=== PATIENT | female | born 1985 | race Two or more races ===

== ENCOUNTER 2017-02-15 18:59 | Emergency (ER) | payer OTHER ==
[2017-02-15 19:08] VITALS: TEMP 98; BMI 35.6
[2017-02-15] MEDS ORDERED: ALBUTEROL SO4 2.5/IPRATROPIUM 0.5 INH SOL 3 ML VIAL.NEB. NEB ONE ×5 (19:11→20:12)
[2017-02-15] MEDS ORDERED: predniSONE 20 MG TABLET (UD) PO ONE (19:41)
--- NOTE | 2017-02-15 19:42 | PDOC ---
History of Present Illness - General Chief Complaint: Wheezing Stated Complaint: ASTHMA Time Seen by Provider: 02/15/17 19:41 History Source: Patient Exam Limitations: No Limitations - History of Present Illness Initial Comments: 02/15/17 19:49 Patient stated had onset of cold last week with asthmatic type symptoms, has been using her nebulizer at home but has progressively become worse. Patient states now feels has air hunger, was feverish 3 days ago but none now. Has Proventil at home but has not taken anysteroids recently 02/15/17 22:50 Timing/Duration: reports: changing over time, getting worse Severity: reports: moderate, severe Possible Cause: Yes: unknown cause Modifying Factors: improves with: activity Associated Symptoms: reports: cough, dizziness, fever/chills, nasal congestion, shortness of breath, wheezing Past History - Travel Traveled outside of the country in the last 30 days: No Close contact w/someone who was outside of country & ill: No - Past Medical History Allergies/Adverse Reactions: Allergies Allergy/AdvReac Type Severity Reaction Status Date / Time No Known Allergies Allergy Verified 02/15/17 19:08 Home Medications: Ambulatory Orders Oxycodone HCl/Acetaminophen [Percocet 5-325 mg Tablet] 1 - 2 tab PO Q4H PRN #10 tablet 06/10/15 Anemia: Yes Asthma: Yes Cancer: No Cardiac Disorders: No CVA: No COPD: No CHF: No Dementia: No Diabetes: No GI Disorders: No Disorders: No HTN: No Hypercholesterolemia: No Liver Disease: No Seizures: No Thyroid Disease: No - Surgical History Abdominal Surgery: (TUBAL LIGATION) Appendectomy: No Cardiac Surgery: No Cholecystectomy: No Lung Surgery: No Neurologic Surgery: No Orthopedic Surgery: No - Immunization History Immunization Up to Date: Yes - Psycho/Social/Smoking Cessation Hx Anxiety: No Suicidal Ideation: No Smoking Status: No Smoking History: Never smoked Number of Cigarettes Smoked Daily: 0 Hx Alcohol Use: No Drug/Substance Use Hx: No Substance Use Type: None Respiratory Specific PMHX - Complaint Specific PMHX Angina: No Bronchitis: Yes Review of Systems - Review of Systems Able to Perform ROS?: Yes Is the patient limited Portuguese proficient: Yes Constitutional: Yes: Symptoms Reported, See HPI, Fever (3 days ago), Loss of Appetite, Malaise HEENTM: Yes: Symptoms Reported, Nose Congestion, Throat Pain Respiratory: Yes: Symptoms reported, See HPI, Cough, Stridor, Wheezing Integumentary: No: Symptoms Reported Neurological: No: Symptoms reported All Other Systems: Reviewed and Negative *Physical Exam - Vital Signs Last Vital Signs Temp Pulse Resp BP Pulse Ox 98.0 F 61 22 144/87 97 02/15/17 19:03 02/15/17 19:03 02/15/17 19:03 02/15/17 19:03 02/15/17 19:03 - Physical Exam General Appearance: Yes: Nourished, Appropriately Dressed, Apparent Distress, Mild Distress, Moderate Distress HEENT: positive: SAUNDRA, Normal ENT Inspection, TMs Normal, Pharynx Normal, Nasal Congestion, Rhinorrhea. negative: Pharyngeal Erythema (posterior sinus drainage ) Neck: positive: Supple. negative: Tender, Lymphadenopathy (R), Lymphadenopathy (L) Respiratory/Chest: positive: Accessory Muscle Use, Labored Respiration, Decreased Breath Sounds, Wheezing (tight course expiratory wheezing). negative : Lungs Clear Gastrointestinal/Abdominal: positive: Soft. 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 intact ED Treatment Course - Medications Given in the ED: ED Medications Discontinued Medications Generic Name Dose Route Start Last Admin Trade Name Freq PRN Reason Stop Dose Admin Albuterol/Ipratropium 1 amp 02/15/17 19:11 02/15/17 19:11 Duoneb - NEB 02/15/17 19:12 1 amp NOW ONE Administration Progress Note - Progress Note Progress Note: Asthma exacerbation, will treat with DuoNeb and prednisone, obtain chest x-ray if not significant improvement will moved to main emergency department for continued treatment and possible admission Medical Decision Making - Medical Decision Making 02/15/17 21:51 patient with some improvement but continues tachypnea, course expiratory wheezing bilateral and throughout with some air hunger after for DuoNeb treatments, 60 mg of prednisone. Chest x-ray does not reveal obvious infiltrate however patient is not well improved after this course therefore moved to main emergency department for continued evaluation/treatment and possible admission. Turnover to Dr. Guerrier. *DC/Admit/Observation/Transfer Diagnosis at time of Disposition: Asthma Qualifiers: Asthma severity: unspecified severity Asthma complication type: with acute exacerbation Qualified Code(s): J45.901 - Unspecified asthma with (acute) exacerbation
[2017-02-15] MEDS ORDERED: predniSONE 20 MG TABLET (UD) ONE (19:46)
[2017-02-15] MEDS ORDERED: ALBUTEROL SO4 2.5/IPRATROPIUM 0.5 INH SOL 3 ML VIAL.NEB. NEB STA (23:49)
[2017-02-15] MEDS ORDERED: MAGNESIUM SULF 50% (8.12 MEQ/2 ML-1 GM VIAL) IVPB ONE (23:50)
[2017-02-15] MEDS ORDERED: MAGNESIUM SULF 50% (8.12 MEQ/2 ML-1 GM VIAL) ONE (23:50)
--- NOTE | 2017-02-15 23:50 | PDOC ---
[id number] 97 02/15/17 19:03 02/15/17 19:03 02/15/17 19:03 02/15/17 19:03 02/15/17 19:03 - Physical Exam Comments: 02/15/17 23:57 GENERAL: Well-appearing, well-nourished. No apparent distress. HEENT: Normocephalic, atraumatic. PERRL, EOM intact. CARDIOVASCULAR: Normal S1, S2. Regular rate and rhythm. PULMONARY: No respiratory distress. Bilateral wheezing throughout all lung caballero. ABDOMEN: Soft, non-distended, non-tender. EXTREMITIES: Normal ROM in all four extremities. No gross deformities. SKIN: Warm, dry. No rash NEUROLOGICAL: No focal neurological deficits. <Racquel Weiss - Last Filed: 02/15/17 23:56> - Vital Signs Last Vital Signs Temp Pulse Resp BP Pulse Ox 98.0 F 61 22 144/87 97 02/15/17 19:03 02/15/17 19:03 02/15/17 19:03 02/15/17 19:03 02/15/17 19:03 <Piyush Dunham - Last Filed: 02/19/17 19:38> ED Treatment Course - Medications Given in the ED: ED Medications Discontinued Medications Generic Name Dose Route Start Last Admin Trade Name Frederic PRN Reason Stop Dose Admin Albuterol/Ipratropium 1 amp 02/15/17 19:11 02/15/17 19:11 Duoneb - NEB 02/15/17 19:12 1 amp NOW ONE Administration Albuterol/Ipratropium 1 amp 02/15/17 19:41 02/15/17 19:49 Duoneb - NEB 02/15/17 19:42 1 amp ONCE ONE Administration Albuterol/Ipratropium 1 amp 02/15/17 19:49 02/15/17 20:18 Duoneb - NEB 02/15/17 19:50 1 amp ONCE ONE Administration Prednisone 60 mg 02/15/17 19:41 02/15/17 19:49 Deltasone - PO 02/15/17 19:42 60 mg ONCE ONE Administration <Racquel Weiss - Last Filed: 02/15/17 23:56> - LABORATORY CBC & Chemistry Diagram: 02/16/17 00:01 02/16/17 00:01 - Medications Given in the ED: ED Medications Discontinued Medications Generic Name Dose Route Start Last Admin Trade Name Frederic PRN Reason Stop Dose Admin Albuterol/Ipratropium 1 amp 02/15/17 19:11 02/15/17 19:11 Duoneb - NEB 02/15/17 19:12 1 amp NOW ONE Administration Albuterol/Ipratropium 1 amp 02/15/17 19:41 02/15/17 19:49 Duoneb - NEB 02/15/17 19:42 1 amp ONCE ONE Administration Albuterol/Ipratropium 1 amp 02/15/17 19:49 02/15/17 20:18 Duoneb - NEB 02/15/17 19:50 1 amp ONCE ONE Administration Prednisone 60 mg 02/15/17 19:41 02/15/17 19:49 Deltasone - PO 02/15/17 19:42 60 mg ONCE ONE Administration <Piyush Dunham - Last Filed: 02/19/17 19:38> Medical Decision Making - Medical Decision Making 02/15/17 23:57 The patient is a 31 year old female with significant past medical history of anemia and asthma who presents to the ED with 1 week of worsening cough, wheezing and SOB. Patient reports using her nebulizers at home with no improvement. Symptoms progressively gotten worse. Patient was seen and evaluated in fast track. There she received 4 nebulizer treatments and 60 of prednisone with no improvement. Denies lightheadedness, diaphoresis, chest pain , jaw pain, shoulder pain, arm pain, nausea, or vomiting. The patient denies fever, chills, abdominal pain, and diarrhea. Allergies: NKDA Social History: No alcohol, tobacco, or drug use reported. Past Surgical History: tubal ligation PCP: Dr. Servando CHERY CONSTITUTIONAL: Absent: fever, no chills, no fatigue EYES: Absent: visual changes ENT: Absent: ear pain, no sore throat CARDIOVASCULAR: Absent: chest pain, no palpitations RESPIRATORY: +cough, SOB, wheezing GI: Absent: abdominal pain, no nausea, no vomiting, no constipation, no diarrhea GENITOURINARY: Absent: dysuria, no frequency, no hematuria MUSCULOSKELETAL: Absent: back pain, no arthralgia, no myalgia SKIN: Absent: rash NEURO: Absent: headache <Racquel Weiss - Last Filed: 02/15/17 23:56> - Medical Decision Making 02/19/17 19:37 Dr. Dunham: The scribe's documentation has been prepared under my direction and personally reviewed by me in its entirery. I confirm that the note above accurately reflects all work, treatment, procedures, and medical decision making performed by me. <Piyush Dunham - Last Filed: 02/19/17 19:38> *DC/Admit/Observation/Transfer - Attestations Scribe Attestion: 02/15/17 23:57 Documentation prepared by Racquel Weiss, acting as medical staff credentialing coordinator for Piyush Dunham MD <Racquel Weiss - Last Filed: 02/15/17 23:56> - Discharge Dispostion Admit: No <Piyush Dunham - Last Filed: 02/19/17 19:38> Diagnosis at time of Disposition: Asthma Qualifiers: Asthma severity: unspecified severity Asthma complication type: with acute exacerbation Qualified Code(s): J45.901 - Unspecified asthma with (acute) exacerbation - Discharge Dispostion Disposition: HOME Condition at time of disposition: Stable - Prescriptions Prescriptions: Methylprednisolone [Medrol Dose Arcadio] 4 mg PO ASDIR #21 tablet Azithromycin [Zithromax -] 250 mg PO UTDICT #6 tab - Referrals Referrals: Servando Celis MD [Primary Care Provider] - - Patient Instructions Printed Discharge Instructions: DI for Asthma -- Adult - Post Discharge Activity
[2017-02-16 00:21] LABS: BASOPHIL 0.2 % (0-2.0); EOSINOPHIL 0.1 % (0-4.5); MCH 22.5 pg (25.7-33.7); MCHC 31.8 g/dl (32.0-36.0); MEAN CELL VOLUME 70.8 fl (80-96); MEAN PLT VOLUME 8.8 fl (7.5-11.1); PLATELET COUNT 281 K/MM3 (134-434); RDW 20.9 % (11.6-15.6); WHITE BLOOD COUNT 5.6 K/mm3 (4.0-10.0)
[2017-02-16 01:06] LABS: ALBUMIN 3.7 g/dl (3.4-5.0); ALK PHOS 54 U/L (45-117); ANION GAP 14 (8-16); BILIRUBIN,TOTAL 0.2 mg/dL (0.2-1.0); CALCIUM 8.5 mg/dL (8.5-10.1); CO2 21 mmol/L (21-32); COCKROFT - GAULT 124.1425; CREATININE 0.9 mg/dL (0.55-1.02); GLUCOSE,RANDOM 120 mg/dL (74-106); SGOT/AST 11 U/L (15-37); SGPT/ALT 19 U/L (12-78); TOT PROT 7.9 g/dl (6.4-8.2)
[2017-02-16] MEDS ORDERED: AZITHROMYCIN 250 MG TABLET (FP) PO STA (01:27)
[2017-02-16] MEDS ORDERED: AZITHROMYCIN 250 MG TABLET (FP) ONE (01:32)
[2017-02-16 01:45] VITALS: BP 134/89; PULSE 91
== END 2017-02-16 01:44 | disposition home or self-care (01) ==
LOC: JERFT 18:59 → JER 18:59
PROC: 3E0F7GC Introduction of Other Therapeutic Substance into Respiratory Tract, Via Natural or Artificial Opening (ICD-10-PCS; principal; 2017-02-15)
PROC: 3E0F7GC Introduction of Other Therapeutic Substance into Respiratory Tract, Via Natural or Artificial Opening (ICD-10-PCS; 2017-02-15)
PROC: 3E0F7GC Introduction of Other Therapeutic Substance into Respiratory Tract, Via Natural or Artificial Opening (ICD-10-PCS; 2017-02-15)
PROC: 3E0F7GC Introduction of Other Therapeutic Substance into Respiratory Tract, Via Natural or Artificial Opening (ICD-10-PCS; 2017-02-15)
PROC: 3E033GC Introduction of Other Therapeutic Substance into Peripheral Vein, Percutaneous Approach (ICD-10-PCS; 2017-02-15)
DX: J45.909 Unspecified asthma, uncomplicated (principal)
CPT/HCPCS: 36415; 71020-TC; 80053; 85025; 99283-25

== ENCOUNTER 2018-03-10 00:05 | Emergency (ER) | payer OTHER ==
[2018-03-10] MEDS ORDERED: SODIUM CHLORIDE 1,000 ML IV STA (01:10)
[2018-03-10] MEDS ORDERED: METOCLOPRAMIDE HCL INJECTION 10 MG/2 ML VIAL IVPB ONE (01:10)
--- NOTE | 2018-03-10 01:10 | PDOC ---
History of Present Illness - General Stated Complaint: MIGRANES/VOMITING Time Seen by Provider: 03/10/18 00:36 History Source: Patient Exam Limitations: No Limitations - History of Present Illness Initial Comments: 03/10/18 01:42 Best Contact:[phone] PCP:Alisson from the B[facility]/clinic Pmhx: Migraines Pshx: : C-sections Allergies:NKDA LMP: 03/01/2018 32-year-old female presents to the ER with her complaining of left sided periorbital/left temporal 8/10 tension-like throbbing continuous nonradiating discomfort with nausea, photophobia and phonophobia but denies vomiting, fever/chills, dizziness, lightheadedness, visual disturbance, neck pain/stiffness, back pains, chest pain, shortness of breath, abdominal pains, flank pains, urinary symptoms. Patient states it feels similar to her previous migraine episodes. Past History - Past Medical History Allergies/Adverse Reactions: Allergies Allergy/AdvReac Type Severity Reaction Status Date / Time No Known Allergies Allergy Verified 02/15/17 19:08 Home Medications: Ambulatory Orders NK [No Known Home Medication] 03/10/18 Anemia: Yes Asthma: Yes Cancer: No Cardiac Disorders: No CVA: No COPD: No CHF: No Dementia: No Diabetes: No GI Disorders: No Disorders: No HTN: No Hypercholesterolemia: No Liver Disease: No Seizures: No Thyroid Disease: No - Surgical History Abdominal Surgery: (TUBAL LIGATION) Appendectomy: No Cardiac Surgery: No Cholecystectomy: No Lung Surgery: No Neurologic Surgery: No Orthopedic Surgery: No - Immunization History Immunization Up to Date: Yes - Suicide/Smoking/Psychosocial Hx Smoking Status: No Smoking History: Never smoked Number of Cigarettes Smoked Daily: 0 Hx Alcohol Use: No Drug/Substance Use Hx: No Substance Use Type: None Review of Systems - Review of Systems Able to Perform ROS?: Yes Comments:: 03/10/18 01:44 CONSTITUTIONAL: Absent: fever, chills, diaphoresis, generalized weakness, malaise, loss of appetite HEENT: Absent: rhinorrhea, nasal congestion, throat pain, throat swelling, difficulty swallowing, mouth swelling, ear pain, eye pain, visual Changes CARDIOVASCULAR: Absent: chest pain, loss of consciousness, palpitations, irregular heart rate, peripheral edema RESPIRATORY: Absent: cough, shortness of breath, dyspnea with exertion, orthopnea, wheezing, stridor, hemoptysis GASTROINTESTINAL: Absent: abdominal pain, abdominal distension, nausea, vomiting, diarrhea, constipation, melena, hematochezia GENITOURINARY: Absent: dysuria, frequency, urgency, hesitancy, hematuria, flank pain, genital pain MUSCULOSKELETAL: Absent: myalgia, arthralgia, joint swelling SKIN: Absent: rash, itching, pallor HEMATOLOGIC/IMMUNOLOGIC: Absent: easy bleeding, easy bruising, lymphadenopathy, frequent infections ENDOCRINE: Absent: unexplained weight gain, unexplained weight loss, heat intolerance, cold intolerance NEUROLOGIC: +Left temporal/periorbital pain Absent: focal weakness or paresthesias, dizziness, unsteady gait, seizure, mental status changes, bladder or bowel incontinence PSYCHIATRIC: Absent: anxiety, depression, suicidal or homicidal ideation, hallucinations. Is the patient limited Lebanese proficient: No *Physical Exam - Physical Exam Comments: 03/10/18 01:44 GENERAL: Well developed, well nourished. Awake and alert. No acute distress. HEENT: Normocephalic, atraumatic. PERRLA, EOMI. No conjunctival pallor. Sclera are non- icteric. Moist mucous membranes. Oropharynx is clear. NECK: Supple. Full ROM. No JVD. Carotid pulses 2+ and symmetric, without bruits. No thyromegaly. No lymphadenopathy. CARDIOVASCULAR: Regular rate and rhythm. No murmurs, rubs, or gallops. Distal pulses are 2+ and symmetric. PULMONARY: No evidence of respiratory distress. Lungs clear to auscultation bilaterally. No wheezing, rales or rhonchi. ABDOMINAL: Soft. Non-tender. Non-distended. No rebound or guarding. No organomegaly. Normoactive bowel sounds. MUSCULOSKELETAL Normal range of motion at all joints. No bony deformities or tenderness. No CVA tenderness. EXTREMITIES: No cyanosis. No clubbing. No edema. No calf tenderness. SKIN: Warm and dry. Normal capillary refill. No rashes. No jaundice. NEUROLOGICAL: Alert, awake, appropriate. Cranial nerves 2-12 intact. No deficits to light touch and temperature in face, upper extremities and lower extremities. No motor deficits in the in face, upper extremities and lower extremities. Normoreflexic in the upper and lower extremities. Normal speech. Toes are down- going bilaterally. Gait is normal without ataxia. PSYCHIATRIC: Cooperative. Good eye contact. Appropriate mood and affect. ED Treatment Course - LABORATORY CBC & Chemistry Diagram: 03/10/18 01:08 Progress Note - Progress Note Progress Note: 0518hrs: Pt is pain free and wishes to be d/c *DC/Admit/Observation/Transfer Diagnosis at time of Disposition: Migraine Qualifiers: Migraine type: unspecified Status migrainosus presence: without status migrainosus Intractability: not intractable Qualified Code(s): G43.909 - Migraine, unspecified, not intractable, without status migrainosus - Discharge Dispostion Disposition: HOME Condition at time of disposition: Stable Admit: No - Referrals Referrals: Trung Wharton MD [Staff Physician] - - Patient Instructions Printed Discharge Instructions: DI for Migraine Additional Instructions: Follow-up with the neurologist on your discharge Rest Take Tylenol alternating with Motrin as needed for pain Return back to the emergency department for severe/persistent or worsening symptoms - Post Discharge Activity
[2018-03-10 01:26] VITALS: PULSE 80; TEMP 98.3; BMI 34.7
[2018-03-10 02:07] LABS: ALBUMIN 3.7 g/dl (3.4-5.0); ANION GAP 8 (8-16); BLOOD UREA NITROGEN 11 mg/dL (7-18); CALCIUM 8.7 mg/dL (8.5-10.1); CHLORIDE 107 mmol/L (98-107); CO2 25 mmol/L (21-32); CREATININE 0.7 mg/dL (0.55-1.02); GLUCOSE,RANDOM 100 mg/dL (74-106); POTASSIUM 4.3 mmol/L (3.5-5.1); SGOT/AST 12 U/L (15-37); SGPT/ALT 13 U/L (12-78); SODIUM 140 mmol/L (136-145)
[2018-03-10 02:08] LABS: ALK PHOS 56 U/L (45-117); BILIRUBIN,TOTAL 0.5 mg/dL (0.2-1.0); TOT PROT 7.4 g/dl (6.4-8.2)
[2018-03-10] MEDS ORDERED: ACETAMINOPHEN 1000 MG/100 ML VIAL (NON FORMULARY) IVPB ONE (03:51)
[2018-03-10] MEDS ORDERED: ACETAMINOPHEN INJECTION 100 ML IVPB ONE (04:10)
[2018-03-10 06:02] VITALS: BP 130/85
== END 2018-03-10 06:01 | disposition home or self-care (01) ==
LOC: JER 00:05
PROC: 3E033NZ Introduction of Analgesics, Hypnotics, Sedatives into Peripheral Vein, Percutaneous Approach (ICD-10-PCS; principal; 2018-03-10)
PROC: 3E033GC Introduction of Other Therapeutic Substance into Peripheral Vein, Percutaneous Approach (ICD-10-PCS; 2018-03-10)
PROC: 3E033GC Introduction of Other Therapeutic Substance into Peripheral Vein, Percutaneous Approach (ICD-10-PCS; 2018-03-10)
DX: G43.909 Migraine, unspecified, not intractable, without status migrainosus (principal)
CPT/HCPCS: 36415; 80053; 96374; 96375; 99283-25; J0131; J7030

== ENCOUNTER 2019-11-21 23:01 | Emergency (ER) | payer OTHER ==
[2019-11-21 23:07] VITALS: TEMP 98; BMI 34.7
--- NOTE | 2019-11-22 00:56 | PDOC ---
History of Present Illness - General History Source: Patient Exam Limitations: Clinical Condition - History of Present Illness Initial Comments: 11/22/19 01:12 Patient with no significant past medical history presented with complaint of bug bite to right upper extremity, left leg and torso for 2 days which has been worsening of unknown etiology. Patient reported going to urgent care yesterday for symptoms and was told it could be a spider bite and was prescribed Bactrim antibiotics but did not feel comfortable with the providers decision as provider was unsure of her decision. Patient reported rash as red itchy rash which spreads from scratching. Denies shortness of breath, choking sensation, fever, chills. Denies any other symptoms. Patient has not started prescribed medication yet Timing/Duration: reports: other (2 days) <Giovani Edwards - Last Filed: 11/22/19 01:12> <Timothy Cortés - Last Filed: 11/22/19 02:33> - General Chief Complaint: Rash Stated Complaint: RASH Time Seen by Provider: 11/22/19 00:40 Past History - Past Medical History Anemia: Yes Asthma: Yes Cancer: No Cardiac Disorders: No CVA: No COPD: No CHF: No Dementia: No Diabetes: No GI Disorders: No Disorders: No HTN: No Hypercholesterolemia: No Liver Disease: No Seizures: No Thyroid Disease: No - Surgical History Abdominal Surgery: (TUBAL LIGATION) Appendectomy: No Cardiac Surgery: No Cholecystectomy: No Lung Surgery: No Neurologic Surgery: No Orthopedic Surgery: No - Immunization History Immunization Up to Date: Yes - Psycho Social/Smoking Cessation Hx Smoking Status: No Smoking History: Never smoked Number of Cigarettes Smoked Daily: 0 Hx Alcohol Use: No Drug/Substance Use Hx: No Substance Use Type: None <Giovani Edwards - Last Filed: 11/22/19 01:12> <Timothy Cortés - Last Filed: 11/22/19 02:33> - Past Medical History Allergies/Adverse Reactions: Allergies Allergy/AdvReac Type Severity Reaction Status Date / Time No Known Allergies Allergy Verified 11/21/19 23:07 Home Medications: Ambulatory Orders Doxycycline Hyclate 100 mg PO BID 7 Days #14 tablet 11/22/19 Hydrocortisone 1% Ointment [Hytone 1% Ointment -] 1 applic TP BID 7 Days #1 tube 11/22/19 Review of Systems - Review of Systems Able to Perform ROS?: Yes Is the patient limited New Zealander proficient: No Constitutional: No: Chills, Fever, Malaise HEENTM: No: Symptoms Reported, See HPI, Eye Pain, Blurred Vision, Tearing, Recent change in vision, Double Vision, Cataracts, Ear Pain, Ocular Prothesis, Ear Discharge, Nose Pain, Nose Congestion, Tinnitus, Nose Bleeding, Hearing Loss , Throat Pain, Throat Swelling, Mouth Pain, Dental Problems, Difficulty Swallowing, Mouth Swelling, Other Respiratory: No: Symptoms reported, See HPI, Cough, Orthopnea, Shortness of Breath, SOB with Exertion, SOB at Rest, Stridor, Wheezing, Productive cough, Hemoptysis, Other Cardiac (ROS): No: Symptoms Reported, See HPI, Chest Pain, Edema, Irregular Heart Rate, Lightheadedness, Palpitations, Syncope, Chest Tightness, Other ABD/GI: No: Symptoms Reported, Nausea, Vomiting Musculoskeletal: No: Symptoms Reported Integumentary: Yes: Symptoms Reported, See HPI, Pruritus (over rash areas), Rash (right UE, torso, left leg) Neurological: No: Symptoms reported, Dizziness Endocrine: No: Symptoms Reported All Other Systems: Reviewed and Negative <Giovani Edwards - Last Filed: 11/22/19 01:12> *Physical Exam - Vital Signs Last Vital Signs Temp Pulse Resp BP Pulse Ox 98 F 72 18 136/83 99 11/21/19 23:04 11/21/19 23:04 11/21/19 23:04 11/21/19 23:04 11/21/19 23:04 - Physical Exam 11/22/19 01:15 GENERAL: Well developed, well nourished. Awake and alert. No acute distress. HEENT: Normocephalic, atraumatic. PERRLA, EOMI. No conjunctival pallor. Sclera are non-icteric. Moist mucous membranes. Oropharynx is clear. NECK: Supple. Full ROM. CARDIOVASCULAR: Regular rate and rhythm. No murmurs, rubs, or gallops. Distal pulses are 2+ and symmetric. PULMONARY: No evidence of respiratory distress. Lungs clear to auscultation bilaterally. No wheezing, rales or rhonchi. MUSCULOSKELETAL Normal range of motion at all joints. SKIN: Warm and dry. Normal capillary refill. Multiple circular urticarial rashes to right upper extremity, anterior torso and left leg with localized excoriation from scratching without open wounds or drainage from site. NEUROLOGICAL: Alert, awake, appropriate. Gait is normal without ataxia. PSYCHIATRIC: Cooperative. Good eye contact. Appropriate mood General Appearance: Yes: Nourished, Appropriately Dressed. No: Apparent Distress <GraceGiovani Bashir - Last Filed: 11/22/19 01:12> - Vital Signs Last Vital Signs Temp Pulse Resp BP Pulse Ox 98 F 72 18 136/83 99 11/21/19 23:04 11/21/19 23:04 11/21/19 23:04 11/21/19 23:04 11/21/19 23:04 <Timothy Cortés - Last Filed: 11/22/19 02:33> Medical Decision Making - Medical Decision Making 11/22/19 01:13 Patient with no significant past medical history presented with complaint of bug bite to right upper extremity, left leg and torso for 2 days which has been worsening of unknown etiology. Patient reported going to urgent care yesterday for symptoms and was told it could be a spider bite and was prescribed Bactrim antibiotics but did not feel comfortable with the providers decision as provider was unsure of her decision. Patient reported rash as red itchy rash which spreads from scratching. Denies shortness of breath, choking sensation, fever, chills. Denies any other symptoms. Patient has not started prescribed medication yet Exam significant for multiple area of urticarial rash rash with excoriation from scratching to multiple areas of right upper arm and forearm and left lower legs consistent with bug bite. No open wound or drainage from site. Given unknown bug bite etiology, patient will be discharged home on doxycycline instead of Bactrim antibiotics to cover most bite infection and topical hydrocortisone cream with dermatology follow-up. Plan discussed with patient patient agrees with plan. Patient stable for discharge <Giovani Edwards Mckay - Last Filed: 11/22/19 01:12> - Medical Decision Making 11/22/19 02:33 The patient was seen and evaluated in conjunction with YRIS Edwards under my direct supervision, ancillary studies were reviewed. I agree with the plan as outlined by YRIS Edwards. <Timothy Cortés - Last Filed: 11/22/19 02:33> Discharge - Discharge Information Problems reviewed: Yes - Admission No <Giovani Edwards - Last Filed: 11/22/19 01:12> <Timothy Cortés - Last Filed: 11/22/19 02:33> - Discharge Information Clinical Impression/Diagnosis: Dermatitis Bug bite Qualifiers: Encounter type: initial encounter Qualified Code(s): W57.XXXA - Bitten or stung by nonvenomous insect and other nonvenomous arthropods, initial encounter Condition: Stable Disposition: HOME - Additional Discharge Information Prescriptions: Doxycycline Hyclate 100 mg PO BID 7 Days #14 tablet Hydrocortisone 1% Ointment [Hytone 1% Ointment -] 1 applic TP BID 7 Days #1 tube - Follow up/Referral Referrals: Aleyda Pablo MD [Staff Physician] - - Patient Discharge Instructions Patient Printed Discharge Instructions: DI for Bed Bug Bites Additional Instructions: Take prescribed medication as prescribed for bite. Follow-up with referred dermatology if no improvement in 3 days - Post Discharge Activity
[2019-11-22 03:56] VITALS: BP 130/86; PULSE 73
== END 2019-11-22 00:58 | disposition home or self-care (01) ==
LOC: JER 23:01
DX: L30.9 Dermatitis, unspecified (principal); S40.861A Insect bite (nonvenomous) of right upper arm, initial encounter; S80.862A Insect bite (nonvenomous), left lower leg, initial encounter; S20.369A Insect bite (nonvenomous) of unspecified front wall of thorax, initial encounter; S30.861A Insect bite (nonvenomous) of abdominal wall, initial encounter; W57.XXXA Bitten or stung by nonvenomous insect and other nonvenomous arthropods, initial encounter; Y93.89 Activity, other specified; Y92.89 Other specified places as the place of occurrence of the external cause; Y99.8 Other external cause status
CPT/HCPCS: 99282-25

== ENCOUNTER 2019-12-10 09:37 | Emergency (ER) | payer OTHER ==
[2019-12-10 09:49] VITALS: BP 119/89; PULSE 66; TEMP 98.2; BMI 34.7
--- NOTE | 2019-12-10 10:10 | PDOC ---
History of Present Illness - General Chief Complaint: Rash Stated Complaint: RASH Time Seen by Provider: 12/10/19 09:50 History Source: Patient - History of Present Illness Location: reports: extremities Past History - Past Medical History Allergies/Adverse Reactions: Allergies Allergy/AdvReac Type Severity Reaction Status Date / Time No Known Allergies Allergy Verified 12/10/19 09:44 Home Medications: Ambulatory Orders Doxycycline Hyclate 100 mg PO BID 7 Days #14 tablet 11/22/19 Hydrocortisone 1% Ointment [Hytone 1% Ointment -] 1 applic TP BID 7 Days #1 tube 11/22/19 Anemia: Yes Asthma: Yes Cancer: No Cardiac Disorders: No CVA: No COPD: No CHF: No Dementia: No Diabetes: No GI Disorders: No Disorders: No HTN: No Hypercholesterolemia: No Liver Disease: No Seizures: No Thyroid Disease: No - Surgical History Abdominal Surgery: (TUBAL LIGATION) Appendectomy: No Cardiac Surgery: No Cholecystectomy: No Lung Surgery: No Neurologic Surgery: No Orthopedic Surgery: No - Immunization History Immunization Up to Date: Yes - Psycho Social/Smoking Cessation Hx Smoking Status: No Smoking History: Never smoked Have you smoked in the past 12 months: No Number of Cigarettes Smoked Daily: 0 Hx Alcohol Use: No Drug/Substance Use Hx: No Substance Use Type: None *Physical Exam - Vital Signs Last Vital Signs Temp Pulse Resp BP Pulse Ox 98.2 F 66 18 119/89 100 12/10/19 09:44 12/10/19 09:44 12/10/19 09:44 12/10/19 09:44 12/10/19 09:44 - Physical Exam General Appearance: Yes: Appropriately Dressed, Apparent Distress HEENT: positive: Normal Voice Neck: positive: Supple Respiratory/Chest: negative: Respiratory Distress Integumentary: positive: Dry, Warm, Other (hives to R arm amfd L axilla) Neurologic: positive: Fully Oriented, Alert, Normal Mood/Affect Medical Decision Making - Medical Decision Making 12/10/19 10:11 34-year-old female, no significant history and no known drug food or environmental allergies, here with pruritic rash to right arm and left axilla. Patient was seen for same 2 weeks ago and was prescribed doxycycline and hydrocortisone which patient has since completed. States rash improved but re- occured several days ago. States intensely pruritic. No fever or chills. No known bug bites and has since washed beddings and clothes in hot water. No sick contacts see exam Hives Unknown etiology Dc w/ OTC oral antihistamine and cold compresses Derm f/u given 12/10/19 10:14 Discharge - Discharge Information Problems reviewed: Yes Clinical Impression/Diagnosis: Hives Condition: Good Disposition: HOME - Follow up/Referral - Patient Discharge Instructions Patient Printed Discharge Instructions: Hives - Post Discharge Activity
--- NOTE | 2019-12-10 10:21 | PDOC ---
*Physical Exam - Vital Signs Last Vital Signs Temp Pulse Resp BP Pulse Ox 98.2 F 66 18 119/89 100 12/10/19 09:44 12/10/19 09:44 12/10/19 09:44 12/10/19 09:44 12/10/19 09:44 Discharge - Discharge Information Problems reviewed: Yes Clinical Impression/Diagnosis: Hives Condition: Good Disposition: HOME - Follow up/Referral Referrals: Servando Celis MD [Primary Care Provider] - Aleyda Pablo MD [Staff Physician] - - Patient Discharge Instructions Patient Printed Discharge Instructions: Hives - Post Discharge Activity
== END 2019-12-10 10:24 | disposition home or self-care (01) ==
LOC: JERFT 09:37
DX: L50.9 Urticaria, unspecified (principal); J45.909 Unspecified asthma, uncomplicated
CPT/HCPCS: 99281-25

== ENCOUNTER 2021-10-02 00:30 | Emergency (ER) | payer OTHER ==
[2021-10-02 00:44] VITALS: BP 138/90; PULSE 84; TEMP 98; BMI 32.0
== END 2021-10-02 04:17 | disposition home or self-care (01) ==
LOC: JER 00:30
DX: J06.9 Acute upper respiratory infection, unspecified (principal); R05.9 Cough, unspecified
CPT/HCPCS: 87804; 87807; 99283-25; C9803; U0003; U0005

== ENCOUNTER 2021-11-05 09:45 | Emergency (ER) | payer OTHER ==
[2021-11-05 10:13] VITALS: BP 132/85; PULSE 93; TEMP 98.3; BMI 34.7
[2021-11-05] MEDS ORDERED: ONDANSETRON *ODT* 4 MG TABLET SL ONE (10:47)
[2021-11-05] MEDS ORDERED: KETOROLAC TROMETHAMINE 30 MG/1 ML VIAL IM ONE (10:47)
[2021-11-05] MEDS ORDERED: ACETAMINOPHEN 500 MG TABLET (FP) PO ONE (10:47)
[2021-11-05] MEDS ORDERED: KETOROLAC TROMETHAMINE 30 MG/1 ML VIAL ONE (10:56)
[2021-11-05] MEDS ORDERED: ONDANSETRON *ODT* 4 MG TABLET ONE (10:56)
[2021-11-05] MEDS ORDERED: ACETAMINOPHEN 500 MG TABLET (FP) ONE (10:57)
== END 2021-11-05 11:43 | disposition home or self-care (01) ==
LOC: JER 09:45
PROC: 3E0233Z Introduction of Anti-inflammatory into Muscle, Percutaneous Approach (ICD-10-PCS; principal; 2021-11-05)
DX: J11.1 Influenza due to unidentified influenza virus with other respiratory manifestations (principal)
CPT/HCPCS: 87804; 87807; 99283-25; C9803; Q0162; U0003; U0005

== ENCOUNTER 2022-04-11 11:23 | Emergency (ER) | payer OTHER ==
[2022-04-11 11:54] VITALS: BP 142/85; PULSE 66; TEMP 99.3; BMI 34.7
== END 2022-04-11 13:41 | disposition home or self-care (01) ==
LOC: JERFT 11:23 → JER 11:23 → JERFT 13:41
DX: H00.011 Hordeolum externum right upper eyelid (principal)
CPT/HCPCS: 99281-25

== ENCOUNTER 2022-10-07 15:39 | Emergency (ER) | payer OTHER ==
[2022-10-07 16:25] VITALS: BP 141/99; PULSE 78; RESP 16; TEMP 98.4; BMI 35.6
[2022-10-07] MEDS ORDERED: DEXAMETHASONE LIQUID 0.5 MG/5 ML PO ONE (16:32)
[2022-10-07] MEDS ORDERED: DEXAMETHASONE SOD PHOSPHATE 10 MG/1 ML VIAL ONE (16:35)
[2022-10-07] MEDS ORDERED: ALBUTEROL SO4 2.5/IPRATROPIUM 0.5 INH SOL 3 ML VIAL.NEB. NEB SCH (16:45)
== END 2022-10-07 22:03 | disposition home or self-care (01) ==
LOC: JER 15:39
PROC: 3E0F7GC Introduction of Other Therapeutic Substance into Respiratory Tract, Via Natural or Artificial Opening (ICD-10-PCS; principal; 2022-10-07)
DX: U07.1 COVID-19 (principal)
CPT/HCPCS: 0241U-QW; 71046-TC-FY; 99284-25

== ENCOUNTER 2024-05-19 08:24 | Emergency (ER) | payer OTHER ==
[2024-05-19 08:28] VITALS: BP 166/71; PULSE 70; RESP 18; TEMP 98; BMI 34.7
[2024-05-19] MEDS ORDERED: ACETAMINOPHEN 325 MG TABLET (FP) ONE (09:24)
[2024-05-19] MEDS ORDERED: IBUPROFEN 400 MG TABLET (FP) PO ONE (09:25)
[2024-05-19] MEDS: ACETAMINOPHEN 325 MG TABLET (FP) PO ONE (09:27)
[2024-05-19] MEDS: IBUPROFEN 400 MG TABLET (FP) PO ONE (09:28)
== END 2024-05-19 10:05 | disposition home or self-care (01) ==
LOC: JERFT 08:24
PROC: 0R9 Upper Joints, Drainage (ICD-10-PCS; principal; 2024-05-19)
DX: L03.012 Cellulitis of left finger (principal)
CPT/HCPCS: 99283-25

== ENCOUNTER 2025-01-28 11:46 | Emergency (ER) | payer OTHER ==
[2025-01-28 11:57] VITALS: BP 127/79; PULSE 87; RESP 20; TEMP 99.7; BMI 34.7
[2025-01-28] MEDS: ALBUTEROL SO4 2.5/IPRATROPIUM 0.5 INH SOL 3 ML VIAL.NEB. NEB ONE (12:41)
[2025-01-28] MEDS ORDERED: ALBUTEROL SO4 2.5/IPRATROPIUM 0.5 INH SOL 3 ML VIAL.NEB. NEB ONE (12:47)
[2025-01-28] MEDS ORDERED: DEXAMETHASONE SOD PHOSPHATE 10 MG/1 ML VIAL ONE (12:48)
[2025-01-28] MEDS ORDERED: ACETAMINOPHEN 500 MG TABLET (FP) ONE (12:48)
[2025-01-28] MEDS: ACETAMINOPHEN 500 MG TABLET (FP) PO ONE (12:55)
[2025-01-28] MEDS: DEXAMETHASONE SOD PHOSPHATE 10 MG/1 ML VIAL IM ONE (12:55)
== END 2025-01-28 13:42 | disposition home or self-care (01) ==
LOC: JER 11:46 → JERFT 11:46
PROC: 3E023GC Introduction of Other Therapeutic Substance into Muscle, Percutaneous Approach (ICD-10-PCS; principal; 2025-01-28)
PROC: 3E0F7GC Introduction of Other Therapeutic Substance into Respiratory Tract, Via Natural or Artificial Opening (ICD-10-PCS; 2025-01-28)
DX: U07.1 COVID-19 (principal); J06.9 Acute upper respiratory infection, unspecified; R05.9 Cough, unspecified; R09.81 Nasal congestion; M79.10 Myalgia, unspecified site; R07.89 Other chest pain; R11.2 Nausea with vomiting, unspecified
CPT/HCPCS: 0241U-QW; 99284-25; J1100

== ENCOUNTER 2025-03-10 06:17 | Day surgery (SDC) | payer OTHER ==
[2025-03-02 14:50] VITALS: BMI 33.5
[2025-03-10 10:20] VITALS: TEMP 97.6
[2025-03-10 12:55] VITALS: BP 103/56; PULSE 60; RESP 22
== END 2025-03-10 11:00 | disposition home or self-care (01) ==
LOC: JASU-ENDO 06:17
PROVIDERS: ATTEND Internal Medicine Gastroenterology
PROC: 0DBN8ZX Excision of Sigmoid Colon, Via Natural or Artificial Opening Endoscopic, Diagnostic (ICD-10-PCS; principal; 2025-03-10 09:30)
DX: K63.5 Polyp of colon (principal); K64.8 Other hemorrhoids
CPT/HCPCS: 81025; 88305-TC